=== PATIENT | female | born 1980 | race Caucasian/White ===

== ENCOUNTER → 2021-08-25 13:28 | Outpatient (BNVA) | payer BC, SELFPAY | PROVIDERS: Visit Provider Registered Nurse Neonatal Intensive Care | DX: S62.629A Displaced fracture of middle phalanx of unspecified finger, initial encounter for closed fracture (principal); W10.9XXA Fall (on) (from) unspecified stairs and steps, initial encounter | CPT/HCPCS: 73130 ==

== ENCOUNTER → 2023-03-25 11:31 | Outpatient (BNVA) | payer BC, SELFPAY | PROVIDERS: PCP Family Medicine; Visit Provider Family Medicine | DX: N92.6 Irregular menstruation, unspecified (principal); R53.83 Other fatigue; Z13.6 Encounter for screening for cardiovascular disorders | CPT/HCPCS: 80053; 82670; 83001; 83002; 84443; 85025 ==

== ENCOUNTER → 2023-05-28 15:52 | Outpatient (BNVA) | payer BC, SELFPAY | PROVIDERS: PCP Family Medicine; Visit Provider Family Medicine | DX: Z01.419 Encounter for gynecological examination (general) (routine) without abnormal findings (principal) | CPT/HCPCS: 87624 ==

== ENCOUNTER 2025-06-04 11:48 | Outpatient (CLI) | payer BC, SELFPAY ==
--- NOTE | 2025-06-04 12:15 | US_ITS ---
WS: [id number] US transvaginal [id number] HISTORY: pelvic pain COMPARISON: None available. Uterus: 8.2 cm x 5.3 cm x 4.8 cm. Normal size anteverted uterus. No fibroid or mass. Endometrium: 1.2 cm. Normal. Neither ovary is identified. There is a large amount of peristalsis and material within the GI tract. Small amount of free fluid. US/US transvaginal [id number] IMPRESSION: 1. Normal uterus and endometrium. 2. Neither ovary is identified. Adnexa are being obscured by GI tract content.
[2025-06-04 12:45] LABS: Hematocrit 37.3 % (36-47); Hemoglobin 12.20 g/dL (11.27-16.99); Mean Corpuscular HGB Conc 32.7 g/dL (30-55); Mean Corpuscular Hemoglobin 28.4 pg (27-33); Mean Corpuscular Volume 86.9 fl (85-98); Nucleated Red Blood Cells % 0 %; Platelet Count 229 10^3/cmm (157-399); Red Blood Count 4.29 10^6/uL (3.85-5.65); White Blood Count 6.09 10^3/uL (3.29-11.43)
[2025-06-04 12:51] LABS: Alanine Aminotransferase 9 U/L (0-33); Albumin Level 4.3 g/dL (3.5-5.2); Alkaline Phosphatase 85 U/L (35-105); Anion Gap 16.0 (5-19); Aspartate Amino Transferase 14 U/L (0-32); Blood Urea Nitrogen 9 mg/dL (6-20); Calcium 9.0 mg/dL (8.5-10.5); Carbon Dioxide 23 mmol/L (22-29); Chloride 101 mmol/L (98-107); Cholesterol 125 mg/dL (0-200); Globulin 3.1 g/dL (1.3-4.6); Glucose 85 mg/dL (65-115); HDL Cholesterol 59 mg/dL (60-100); Osmolality Calculated 280 mOsm/kg (285-295); Potassium 4.0 mmol/L (3.5-5.1); Sodium 136 mmol/L (136-145); Thyroid Stimulating Hormone 0.90 uIU/mL (0.27-4.20); Total Protein 7.4 g/dL (6.6-8.7); Triglycerides 55 mg/dL (0-150)
[2025-06-05 07:34] LABS: Insulin ( Reference Lab Test) 24.2 uIU/mL
[2025-06-08 16:10] LABS: Barley Classification 0/1; Barley IgE 0.33 kU/L; Beef (27) IgE 0.96 kU/L; Beef Class 2; Cow's Milk Classification 0; Lamb (F88) IgE 0.44 kU/L; Lamb Class 1; Maize Corn Class 0/1; Pork (F26) IgE 0.40 kU/L; Potato (F35) Ige 0.19 kU/L; Potato Class 0/1; Rye Class 0/1
[2025-06-09 18:15] LABS: Galactose-alpha-1,3 IgE 2.79 kU/L (<0.10)
== END 2025-06-04 11:49 | disposition home or self-care (01) ==
PROVIDERS: PCP Family Medicine; Visit Provider Family Medicine
DX: R10.2 Pelvic and perineal pain (principal); Z76.89 Persons encountering health services in other specified circumstances; E66.811 Obesity, class 1
CPT/HCPCS: 36415; 76830; 80053; 80061; 82785; 83525; 84443; 85025; 86001; 86003; 86008

== ENCOUNTER → 2025-06-15 11:28 | Outpatient (BNVA) | payer BC, SELFPAY | PROVIDERS: PCP Family Medicine; Visit Provider Family Medicine | DX: E88.819 Insulin resistance, unspecified (principal) | CPT/HCPCS: 83525 ==